=== PATIENT | male | born 1950 | race African-American/Black ===

== ENCOUNTER → 2021-04-20 | Day surgery (SDC) | payer MEDICARE ==
[~2021-04-20] MED LIST: ASPI-630 PO; CARV25TA2 PO; GLYCOPYRROLATE 1 MG/5 ML VIAL. ONE; IPRATRPIUM/ALBUTEROL 0.5/2.5MG 3 ML NEBU. NEB PRN; IV RINGERS SOLUTION,LACTATED 1,000 ML IV SCH; LIDOCAINE 2% PF 5 ML VIAL. ONE; LISI2.5T PO; MIDAZOLAM HCL PF 2 MG/2 ML VIAL. IV ONE; ONDANSETRON PF 4 MG/2 ML VIAL. IV PRN; PROPOFOL 10,000 MCG/ML (20ML) VIAL IV ONE
[2021-04-20 13:22] VITALS: BP 145/84
== END | disposition home or self-care (01) ==
LOC: SURG 11:07
PROVIDERS: ATTEND Internal Medicine Gastroenterology
DX: R19.4 Change in bowel habit (principal); K62.5 Hemorrhage of anus and rectum; K64.8 Other hemorrhoids; I10 Essential (primary) hypertension; F17.210 Nicotine dependence, cigarettes, uncomplicated; I42.9 Cardiomyopathy, unspecified; Z79.899 Other long term (current) drug therapy; Z79.82 Long term (current) use of aspirin; Z86.010 Personal history of colon polyps
CPT/HCPCS: 45378; J2001; J2704; J3490; J7120; G0105